=== PATIENT | male | born 1975 | race Caucasian/White ===

== ENCOUNTER 2020-02-12 11:52 | Emergency (ER) | payer OTHER ==
[~2020-02-12] VITALS: Ht 182.9 cm; Wt 90.7 kg
--- NOTE | 2020-02-12 12:10 | NUR ---
ED Nurse Note: Patient was BIBA due to twisted ankle. Patient was running and twisted his right ankle. Patient AAO x4, VSS at this time.
[2020-02-12] MEDS ORDERED: Ketorolac 30mg Inj IM ONE (12:15)
[2020-02-12] MEDS ORDERED: Bacitracin Oint UD TOPIC ONE (12:15)
[2020-02-12] MEDS ORDERED: Methocarbamol 750mg tab ORAL ONE (12:15)
--- NOTE | 2020-02-12 12:45 | NUR ---
ED Nurse Note: x ray by bed side
--- NOTE | 2020-02-12 12:47 | Emergency Room Report ---
History of Present Illness General Chief Complaint: Lower Extremity Injury Source: Patient Present Illness HPI 44-year-old male with no known signal possible history of hypertension currently taking medication here complaining of right ankle pain after twisting injury while working. 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 Denies any tingling or numbness. No bony tenderness noted. Obvious swelling noted on lateral malleolus, Chambers's test is negative. No calf tenderness noted. Patient is neurovascularly intact. No ecchymosis noted. Also complains of abrasion to left knee. No bleeding noted. Of motion of the knee. Denies head injury loss of consciousness. Denies being on blood thinners. Allergies: Coded Allergies: LISINOPRIL (Verified Allergy, Unknown, 02/12/20) COVID-19 Screening Contact w/high risk pt: No Experienced COVID-19 symptoms?: No COVID-19 Testing performed DATASTAGE CONSULTANT: Yes - 1 week COVID-19 Screening: Negative COVID-19 COVID-19 Testing Source: nasal Patient History Past Medical History: see triage record Past Surgical History: none Pertinent Family History: none Reviewed Nursing Documentation: PMH: Agreed; PSxH: Agreed Nursing Documentation-PMH Past Medical History: No History, Except For Hx Hypertension: Yes Review of Systems All Other Systems: negative except mentioned in HPI Physical Exam Vital Signs Date Time Temp Pulse Resp B/P (MAP) Pulse Ox O2 Delivery O2 Flow Rate FiO2 02/12/20 11:52 96.8 90 16 140/80 (100) 100 Room Air Sp02 EP Interpretation: reviewed, normal General Appearance: no apparent distress, alert, GCS 15, non-toxic Head: normocephalic, atraumatic Eyes: bilateral eye normal inspection, bilateral eye PERRL ENT: hearing grossly normal, normal pharynx, no angioedema, normal voice Neck: full range of motion, supple/symm/no masses Respiratory: chest non-tender, lungs clear, normal breath sounds, speaking full sentences Cardiovascular #1: regular rate, rhythm, no edema Cardiovascular #2: 2+ carotid (R), 2+ carotid (L), 2+ radial (R), 2+ radial (L), 2+ dorsalis pedis (R), 2+ dorsalis pedis (L) Gastrointestinal: normal inspection Musculoskeletal: back normal, no calf tenderness, pelvis stable, non-tender, swelling - Right lateral malleolus, other - Chambers test negative Neurologic: alert, motor strength/tone normal, oriented x3, sensory intact, responsive, speech normal Psychiatric: judgement/insight normal, memory normal, mood/affect normal, no suicidal/homicidal ideation Skin: abrasion - Left knee Lymphatic: no adenopathy Procedures Splinting Splinting : Consent: Verbal Location: right ankle Hand-Made Type: plaster Splint: poserior short Pre-Proc Neuro Vasc Exam: normal Post-Proc Neuro Vasc Exam: normal Patient Tolerated: Well Complications: None Progress crutches Medical Decision Making PA Attestation ALL Diagnosis and treatment plan reviewed and discussed with my supervising physician Dr. Ramos Diagnostic Impression: Primary Impression: Injury of tendon of ankle Additional Impressions: Ankle sprain Abrasion ER Course 44-year-old male with no known signal possible history of hypertension currently taking medication here complaining of right ankle pain after twisting injury while working. 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 Denies any tingling or numbness. No bony tenderness noted. Obvious swelling noted on lateral malleolus, Chambers's test is negative. No calf tenderness noted. Patient is neurovascularly intact. No ecchymosis noted. Also complains of abrasion to left knee. No bleeding noted. Of motion of the knee. Denies head injury loss of consciousness. Denies being on blood thinners. Ddx considered but are not limited to: ankle sprain, ankle strain, ankle fracture, ankle contusion, Achilles rupture Vital signs: are WNL, pt. is afebrile H&PE are most consistent with: Right ankle sprain, injury of tendon, abrasion ORDERS: ankle x-ray, Robaxin, Motrin, mupirocin ointment ED INTERVENTIONS: Toradol, Robaxin, splint applied with crutches DISCHARGE: At this time pt. is stable for d/c to home. Will provide printed patient care instructions, and any necessary prescriptions. Care plan and follow up instructions have been discussed with the patient prior to discharge. Patient to follow-up primary doctor for specialist, MRI may be needed, if worsening symptoms return to the emergency room Other X-Ray Diagnostic Results Other X-Ray Diagnostic Results : X-Ray ordered: Right ankle # of Views/Limited Vs Complete: 3 View Indication: Pain EP Interpretation: Yes BOB Xray: Interpretation reviewed, by supervising MD, and agrees with findings. Interpretation: no dislocation, no fractures Impression: No acute disease Electronically Signed by: Radha Almanzar PA-C Last Vital Signs Date Time Temp Pulse Resp B/P (MAP) Pulse Ox O2 Delivery O2 Flow Rate FiO2 02/12/20 11:52 96.8 90 16 140/80 (100) 100 Room Air Disposition: HOME, SELF-CARE Condition: Stable Scripts Mupirocin* (MUPIROCIN*) 22 Gm Oint...g. 1 APPLIC TOPIC THREE TIMES A DAY, #22 GM Prov: Radha Victoria 02/12/20 Ibuprofen (Ibu) 800 Mg Tablet 800 MG PO TID, #30 TAB Prov: Radha Victoria 02/12/20 Methocarbamol* (ROBAXIN-500*) 500 Mg Tablet 500 MG ORAL TID PRN for For Pain, #15 TAB 0 Refills Prov: Radha Victoria 02/12/20 Patient Instructions: Abrasion, Achilles Tendinitis, Ankle Sprain Additional Instructions: Take medication as directed, follow-up with your primary care provider or environmental services specialist, MRI of ankle may be needed, if worsening symptoms return to the emergency Radha Victoria Feb 12, 2020 12:47
[2020-02-12] MEDS ORDERED: IBU800 MG PO (12:51)
[2020-02-12] MEDS ORDERED: ROBAXIN-500MG ORAL (12:51)
[2020-02-12] MEDS ORDERED: MUPIROCIN22 GM TOPIC (12:56)
--- NOTE | 2020-02-12 13:35 | NUR ---
ED Nurse Note: splin was aplyed by Mckinley, patient tolerated procedure well
[2020-02-12 13:50] VITALS: BP 140/80
--- NOTE | 2020-02-12 13:50 | NUR ---
ED Nurse Note: Pt cleared by health care Provider for discharge. DC instructions/prescription was given and explained to pt and verbalized understanding of teachings. All medical deviecs such as ID band removed. Pt is AAO x4, ambulatory and left with all personal belongings.
--- NOTE | 2020-02-12 19:16 | Diagnostic Imaging Report ---
Indication: Trauma, pain Technique: 3 views of the right ankle Comparison: none Findings: No acute fractures. No dislocations. The joint spaces are preserved Impression: Negative
--- NOTE | 2020-02-12 19:17 | Diagnostic Imaging Report ---
Indication: Pain, trauma Technique: 3 views right foot Comparison: 02/12/2020 Findings: No acute fractures. No dislocations. The joint spaces are preserved Impression: Negative
== END 2020-02-12 14:00 | disposition home or self-care (01) ==
LOC: EDBD 11:52 → EMR 13:40
DX: S93.401A Sprain of unspecified ligament of right ankle, initial encounter (principal); S80.212A Abrasion, left knee, initial encounter; S96.901A Unspecified injury of unspecified muscle and tendon at ankle and foot level, right foot, initial encounter; X50.1XXA Overexertion from prolonged static or awkward postures, initial encounter; Y92.9 Unspecified place or not applicable; Z88.8 Allergy status to other drugs, medicaments and biological substances; I10 Essential (primary) hypertension
CPT/HCPCS: 29515; 73610; 73630; 96372; 99284; J1885